=== PATIENT | female | born 1945 | race Caucasian/White ===

== ENCOUNTER 2023-05-05 18:29 | Emergency (ER) | payer BC ==
[~2023-05-05] VITALS: Ht 149.9 cm; Wt 46.8 kg
[2023-05-05 18:33] VITALS: TEMP 98.7
[2023-05-05 20:51] LABS: COLLECTION METHOD CLEAN CATCH
[2023-05-05 21:08] LABS: URINE APPEARANCE Hazy (CLEAR/HAZY); URINE BLOOD TRACE-INTACT (NEGATIVE); URINE COLOR Yellow (YELLOW); URINE GLUCOSE Negative (NEGATIVE); URINE KETONE Negative (NEGATIVE); URINE NITRATE Positive (NEGATIVE); URINE PROTEIN(semi-quant) Negative (NEGATIVE); URINE UROBILINOGEN 0.2 E.U/dL (0.2-1.0)
[2023-05-05 21:09] LABS: MUCOUS Present (NOT PRESENT); SQUAMOUS EPITHELIAL 0-2 /hpf (0-10); URINE BACTERIA Many /hpf (NONE SEEN); URINE RBC 0-2 /hpf (0-2)
[2023-05-05] MEDS ORDERED: cefTRIAXone 1 G in Water For Injection,Sterile 10 ML IV ONE (21:30)
[2023-05-05] MEDS ORDERED: Sulfamethoxazole/Trimethoprim 800-160 MG TAB PO ONE (21:45)
[2023-05-05] MEDS ORDERED: BACTRIM DS 8001 TAB PO (22:26)
[2023-05-05 23:03] VITALS: BP 177/91; PULSE 72
[2023-05-07] MEDS ORDERED: CEFTIN500 MG PO (16:31)
== END 2023-05-05 23:03 | disposition home or self-care (01) ==
LOC: COL.ER 18:29
PROVIDERS: Emergency Medicine
DX: N39.0 Urinary tract infection, site not specified (principal); N12 Tubulo-interstitial nephritis, not specified as acute or chronic